=== PATIENT | female | born 1965 | race Caucasian/White ===

== ENCOUNTER 2023-06-14 07:16 | Day surgery (SDC) | payer BC ==
[2023-06-13 10:08] VITALS: BMI 34.7
[2023-06-14 08:53] LABS: Anion Gap 14 mmol/L (10-20); BUN (Urea Nitrogen) 15 mg/dL (9.8-20.1); Calc. Creatinine Clearance 121 mL/min (70-130); Calcium 9.5 mg/dL (7.8-10.44); Carbon Dioxide 25 mmol/L (22-29); Chloride 105 mmol/L (98-107); Estimated GFR 87; Glucose 136 mg/dL (70-105); Potassium 4.5 mmol/L (3.5-5.1); Sodium 139 mmol/L (136-145)
[2023-06-14] MEDS ORDERED: fentaNYL 50 mcg/mL 1 mL Vial ONE ×3 (09:00→10:52)
[2023-06-14] MEDS ORDERED: Midazolam HCl 2 mg/2 ml Vial ONE (09:00)
[2023-06-14] MEDS ORDERED: CEFAZOLIN 2 GM VIAL ONE (10:08)
[2023-06-14] MEDS ORDERED: Sodium Chloride 0.9% 100 ML ONE (10:08)
[2023-06-14] MEDS ORDERED: PROPOFOL 200 MG/20 ML VIAL ONE (10:28)
[2023-06-14] MEDS ORDERED: Bupivacaine PF 0.5% 30 ML VIAL ONE (10:28)
[2023-06-14] MEDS ORDERED: Ondansetron PF 4 MG/2 ML Vial ONE (10:28)
[2023-06-14] MEDS ORDERED: Lidocaine 1% PF 5 ML VIAL ONE (10:28)
[2023-06-14] MEDS ORDERED: Dexamethasone 20 MG/5 ML VIAL ONE (10:28)
[2023-06-14] MEDS ORDERED: Metoclopramide HCl 10 MG/2 ML VIAL ONE (10:28)
[2023-06-14] MEDS ORDERED: traMADol HCl 50 MG TAB PO PRN ×2 (11:45)
[2023-06-14] MEDS ORDERED: Zolpidem Tartrate 5 MG TAB PO PRN (11:45)
[2023-06-14] MEDS ORDERED: Ropivacaine 0.2% 550 ML 550 ML NERVE BLCK SCH (11:45)
[2023-06-14] MEDS ORDERED: Promethazine HCl 25 MG/ML VIAL IM PRN (11:45)
[2023-06-14] MEDS ORDERED: HYDROcodone/Acetaminophen 5/325 mg Tablet PO PRN ×2 (11:45)
[2023-06-14] MEDS ORDERED: Ondansetron PF 4 MG/2 ML Vial IVP PRN (11:45)
[2023-06-14] MEDS ORDERED: Ketorolac Tromethamine 30 MG/ML VIAL IVP PRN (11:45)
== END 2023-06-14 14:30 | disposition home or self-care (01) ==
LOC: SDC 07:16
PROVIDERS: ATTEND Orthopaedic Surgery
PROC: 0QSK04Z Reposition Left Fibula with Internal Fixation Device, Open Approach (ICD-10-PCS; principal; 2023-06-14)
DX: S82.62XA Displaced fracture of lateral malleolus of left fibula, initial encounter for closed fracture (principal); X50.1XXA Overexertion from prolonged static or awkward postures, initial encounter
CPT/HCPCS: 80048; 93005; 93010; A4306; C1713; C1874; J1100; J2250; J2405; J2704; J2765; J2795; J3010; J3490; S0020